=== PATIENT | male | born 1965 | race Caucasian/White ===

== ENCOUNTER 2023-02-08 16:45 | Emergency (ER) | payer BC ==
[~2023-02-08] VITALS: Ht 185.4 cm; Wt 81.6 kg
[2023-02-08 16:59] VITALS: BP_SYST 130; PULSE 80; RESP 16; TEMP 97.7; O2SAT 98
[2023-02-08 17:23] LABS: BILIRUBIN,URINE NEGATIVE (NEGATIVE); BLOOD, URINE 3+ (NEGATIVE); CLARITY/URINE CLEAR (CLEAR); COLOR,URINE YELLOW (YELLOW); GLUCOSE,URINE NEGATIVE (NEGATIVE); KETONES,URINE NEGATIVE (NEGATIVE); LEUKOCYTE ESTERASE ,URINE TRACE (NEGATIVE); NITRITE, URINE NEGATIVE (NEGATIVE); PROTEIN URINE NEGATIVE (NEGATIVE); UROBILINOGEN,URINE 0.2 (0.2-1.0)
[2023-02-08 17:35] LABS: BACTERIA,URINE MODERATE /HPF (None Seen); RBC,URINE >100 /HPF (0-3); WBC,URINE >100 /HPF (0-3)
[2023-02-08] MEDS ORDERED: CEFU250T85 PO (17:53)
[2023-02-08 18:19] VITALS: BP_SYST 130; PULSE 80; RESP 16; TEMP 97.7; O2SAT 98
== END 2023-02-08 18:16 | disposition home or self-care (01) ==
LOC: SED 16:45
DX: N39.0 Urinary tract infection, site not specified (principal); R33.9 Retention of urine, unspecified; R39.11 Hesitancy of micturition; R10.30 Lower abdominal pain, unspecified; Z79.899 Other long term (current) drug therapy
CPT/HCPCS: 81000; 81001; 81015; 87086; 99283